=== PATIENT | female | born 1980 | race Caucasian/White ===

== ENCOUNTER 2019-05-20 18:36 | Emergency (ER) | payer OTHER ==
[2019-05-20] MEDS: LORAZEPAM 1 MG TAB PO (19:49)
[2019-05-20 19:55] LABS: URINE BLOOD (Dip) POC Negative (NEGATIVE); URINE GLUCOSE (Dip) POC Negative (NEGATIVE); URINE KETONES (Dip) POC Negative (NEGATIVE); URINE LEUKOCYTE EST (Dip) POC Negative (NEGATIVE); URINE NITRITE (Dip) POC Negative (NEGATIVE); URINE TOTAL PROTEIN POC 1+ (NEGATIVE)
[2019-05-20 19:55] LABS: URINE PH (Dip) POC 5.5 (5.0-8.5)
== END 2019-05-20 20:40 | disposition home or self-care (01) ==
LOC: FTE 18:36
DX: F41.9 Anxiety disorder, unspecified (principal); R20.2 Paresthesia of skin; I10 Essential (primary) hypertension
CPT/HCPCS: 81003; 81025; 82962; 99283